=== PATIENT | male | born 1930 | race Caucasian/White ===

== ENCOUNTER 2017-11-01 07:34 | Emergency (ER) | payer MEDICARE, OTHER ==
[2017-11-01 08:05] VITALS: BP 139/96
--- NOTE | 2017-11-01 08:18 | EDM.PDOC ---
ED HPI GENERAL MEDICAL PROBLEM - General Chief Complaint: Lower Extremity Injury/Pain Stated Complaint: fall Time Seen by Provider: 11/01/17 08:00 - History of Present Illness INITIAL COMMENTS - FREE TEXT/NARRATIVE: Zara is an 87 year old male who presents to the ED via EMS from [facility]. He reportedly fell last evening around 2129. Nursing staff reports he hit his right side. They report that through the night he began complaining more of right hip pain and was unable to ambulate to ambulate this morning. They notified family, who then wanted him brought to the ED. He does have dementia and is very confused. Family reports this is his baseline, however they are worried that he did hit his head. He is on coumadin. He is unable to give review of systems, as he does not answer questions appropriately. He does have a laceration to his right elbow, which nursing staff at [facility] applied steri strips to. Family reports they are unaware if the patient has been coughing or had any recent illness. EMS reports his oxygen saturations were low 80's upon arrival. 2 L O2 was applied and O2 sats improved to low 90's. Grandson denies any issues with oxygen saturations in the past. He has been afebrile. Onset Date: 10/31/17 Onset Time: 21:30 Location: Reports: Lower Extremity, Right Worsens with: Reports: Movement Context: Reports: Activity Associated Symptoms: Reports: Confusion. Denies: Chest Pain, Cough, cough w sputum Treatments SOFTWARE SUPPORT ANALYST: Reports: See EMS Report Right Hip Pain Score (Numeric/FACES): 5 - Related Data Allergies Allergy/AdvReac Type Severity Reaction Status Date / Time No Known Allergies Allergy Verified 11/01/17 08:37 Home Meds: Home Meds Montelukast Sodium 10 mg PO BEDTIME 01/30/15 [History] Tamsulosin HCl 0.4 mg PO DAILY 01/30/15 [History] Benzonatate [Tessalon Perles] 100 mg PO TID PRN 08/09/16 [History] Pantoprazole Sodium 40 mg PO DAILY 08/09/16 [History] Warfarin [Coumadin] 5 mg PO DAILY #30 tablet 08/11/16 [Rx] Past Medical History HEENT History: Reports: Allergic Rhinitis, Glaucoma, Hard of Hearing Cardiovascular History: Reports: Blood Clots/VTE/DVT Respiratory History: Reports: Other (See Below) Other Respiratory History: chronic cough Gastrointestinal History: Reports: GERD Genitourinary History: Reports: BPH Musculoskeletal History: Reports: Arthritis Psychiatric History: Reports: Dementia Dermatologic History: Reports: Other (See Below) Other Dermatologic History: actinic keratosis - Past Surgical History GI Surgical History: Reports: Appendectomy, EGD Social & Family History - Family History Family Medical History: Unobtainable - Tobacco Use Smoking Status *Q: Never Smoker Second Hand Smoke Exposure: No - Caffeine Use Caffeine Use: Reports: Coffee - Alcohol Use Days Per Week of Alcohol Use: 0 - Recreational Drug Use Recreational Drug Use: No Review of Systems - Review of Systems Review Of Systems: Unable To Obtain Constitutional: Denies: Fever Respiratory: Denies: Cough, Sputum Cardiovascular: Denies: Chest Pain Genitourinary: Reports: No Symptoms Neurological: Reports: Confusion, Difficulty Walking, Other (dementia) ED EXAM, GENERAL - Physical Exam Exam: See Below Exam Limited By: Altered Mental Status General Appearance: Alert, WD/WN, No Apparent Distress Eye Exam: Bilateral Eye: Normal Fundi, Normal Inspection, PERRL Ears: Normal External Exam, Normal Canal, Hearing Grossly Normal, Normal TMs Nose: Normal Inspection, Normal Mucosa, No Blood Throat/Mouth: Normal Inspection, Normal Lips, Normal Teeth, Normal Gums, Normal Oropharynx, Normal Voice, No Airway Compromise Head: Atraumatic, Normocephalic Neck: Normal Inspection, Supple, Non-Tender, Full Range of Motion Respiratory/Chest: No Respiratory Distress, No Accessory Muscle Use, Chest Non- Tender, Decreased Breath Sounds, Crackles. No: Retractions GI/Abdominal: Normal Bowel Sounds, Soft, Non-Tender, No Organomegaly, No Distention, No Abnormal Bruit, No Mass Back Exam: Normal Inspection, Full Range of Motion. No: Vertebral Tenderness Extremities: Normal Capillary Refill, Pedal Edema (2+ pitting), Joint Swelling ( right hip), Leg Pain, Limited Range of Motion Neurological: Alert, CN II-XII Intact, Disoriented, Memory Loss Remote Events, Memory Loss Recent Events Psychiatric: Normal Affect, Normal Mood Skin Exam: Warm, Dry, Intact, Normal Color, No Rash, Other (laceration to right elbow, steri strips in place) Lymphatic: No Adenopathy Course - Vital Signs Last Recorded V/S: Last Vital Signs Temp 97 F 11/01/17 07:54 Pulse 83 11/01/17 08:05 Resp 20 11/01/17 08:05 BP 139/96 H 11/01/17 08:05 Pulse Ox 92 L 11/01/17 08:05 - Orders/Labs/Meds Orders: Active Orders 24 hr Category Date Time Status Chest 1V Frontal [CR] Stat Exams 11/01/17 08:01 Taken Elbow Min 3V Rt [CR] Stat Exams 11/01/17 08:02 Taken Head wo Cont [CT] Stat Exams 11/01/17 08:02 Taken Hip Min 2V or 3V w Pelvis Rt [CR] Stat Exams 11/01/17 08:03 Taken CULTURE BLOOD [BC] Stat Lab 11/01/17 10:53 Received CULTURE BLOOD [BC] Stat Lab 11/01/17 10:53 Received Blood Culture x2 Reflex Set [OM.PC] Stat Oth 11/01/17 10:21 Ordered Labs: Laboratory Tests 11/01/17 11/01/17 11/01/17 Range/Units 08:14 08:14 08:14 WBC 15.2 H (5.0-10.0) 10^3/uL RBC 4.57 (4.50-6.00) 10^6/uL Hgb 13.8 L (14.0-18.0) g/dL Hct 41.6 (40.0-54.0) % MCV 91.0 (82.0-94.0) fL MCH 30.2 (27.0-32.0) pg MCHC 33.2 (33.0-38.0) g/dL RDW Coeff of Jim 13.4 (11.0-15.0) % Plt Count 221 (150-400) 10^3/uL Neut % (Auto) 93.2 H (35-85) % Lymph % (Auto) 2.1 L (10-55) % [place] % (Auto) 4.5 (0-16) % Eos % (Auto) 0.1 (0-5) % Baso % (Auto) 0.1 (0-3) % Neut # (Auto) 14.20 H (1.80-7.00) 10^3/uL Lymph # (Auto) 0.32 L (1.00-4.80) 10^3/uL [place] # (Auto) 0.69 (0.00-0.80) 10^3/uL Eos # (Auto) 0.02 (0.00-0.45) 10^3/uL Baso # (Auto) 0.01 10^3/uL PT 23.1 H (9.7-12.3) SEC INR 2.09 H (0.92-1.18) D-Dimer, Quantitative > 10.0 H (0.00-0.50) Sodium 138 (136-145) mEq/L Potassium 4.0 (3.5-5.0) mEq/L Chloride 105 (98-106) mEq/L Carbon Dioxide 24 (21-32) mmol/L BUN 23 H (7-18) mg/dL Creatinine 1.6 H (0.7-1.3) mg/dL Est Cr Clr Drug Dosing 35.03 mL/min Estimated GFR (MDRD) 41 L (>=60) mL/min Glucose 149 H D (75-99) mg/dL Lactic Acid (0.4-2.0) mmol/L Calcium 8.9 (8.4-10.1) mg/dL Total Bilirubin 2.0 H (0.0-1.0) mg/dL AST 23 (15-37) U/L ALT 24 (12-78) U/L Alkaline Phosphatase 74 (46-116) U/L Troponin I 0.087 H (0.00-0.06) ng/mL C-Reactive Protein 2.1 H (0.2-0.8) mg/dL NT-Pro-B Natriuret Pep 899 (0-1000) pg/mL Total Protein 6.7 (6.4-8.2) g/dL Albumin 3.4 (3.4-5.0) g/dL Urine Color (YELLOW) Urine Appearance (CLEAR) Urine pH (4.5-8.0) Ur Specific [place] (1.003-1.020) Urine Protein (NEGATIVE) mg/dL Urine Glucose (UA) (NEGATIVE) mg/dL Urine Ketones (NEGATIVE) mg/dL Urine Occult Blood (NEGATIVE) Urine Nitrite (NEGATIVE) Urine Bilirubin (NEGATIVE) Urine Urobilinogen (0.2-1.0) EU/dL Ur Leukocyte Esterase (NEGATIVE) Urine RBC (0-5) /HPF Urine WBC (0-5) /HPF Ur Epithelial Cells (NOT SEEN) /HPF 11/01/17 11/01/17 Range/Units 09:25 10:21 WBC (5.0-10.0) 10^3/uL RBC (4.50-6.00) 10^6/uL Hgb (14.0-18.0) g/dL Hct (40.0-54.0) % MCV (82.0-94.0) fL MCH (27.0-32.0) pg MCHC (33.0-38.0) g/dL RDW Coeff of Jim (11.0-15.0) % Plt Count (150-400) 10^3/uL Neut % (Auto) (35-85) % Lymph % (Auto) (10-55) % [place] % (Auto) (0-16) % Eos % (Auto) (0-5) % Baso % (Auto) (0-3) % Neut # (Auto) (1.80-7.00) 10^3/uL Lymph # (Auto) (1.00-4.80) 10^3/uL [place] # (Auto) (0.00-0.80) 10^3/uL Eos # (Auto) (0.00-0.45) 10^3/uL Baso # (Auto) 10^3/uL PT (9.7-12.3) SEC INR (0.92-1.18) D-Dimer, Quantitative (0.00-0.50) Sodium (136-145) mEq/L Potassium (3.5-5.0) mEq/L Chloride (98-106) mEq/L Carbon Dioxide (21-32) mmol/L BUN (7-18) mg/dL Creatinine (0.7-1.3) mg/dL Est Cr Clr Drug Dosing mL/min Estimated GFR (MDRD) (>=60) mL/min Glucose (75-99) mg/dL Lactic Acid 1.3 (0.4-2.0) mmol/L Calcium (8.4-10.1) mg/dL Total Bilirubin (0.0-1.0) mg/dL AST (15-37) U/L ALT (12-78) U/L Alkaline Phosphatase (46-116) U/L Troponin I (0.00-0.06) ng/mL C-Reactive Protein (0.2-0.8) mg/dL NT-Pro-B Natriuret Pep (0-1000) pg/mL Total Protein (6.4-8.2) g/dL Albumin (3.4-5.0) g/dL Urine Color Yellow (YELLOW) Urine Appearance Clear (CLEAR) Urine pH 6.5 (4.5-8.0) Ur Specific [place] 1.020 (1.003-1.020) Urine Protein 30 H (NEGATIVE) mg/dL Urine Glucose (UA) Negative (NEGATIVE) mg/dL Urine Ketones 40 H (NEGATIVE) mg/dL Urine Occult Blood Large H (NEGATIVE) Urine Nitrite Negative (NEGATIVE) Urine Bilirubin Negative (NEGATIVE) Urine Urobilinogen 0.2 (0.2-1.0) EU/dL Ur Leukocyte Esterase Trace H (NEGATIVE) Urine RBC 40-50 H (0-5) /HPF Urine WBC 5-10 H (0-5) /HPF Ur Epithelial Cells Few H (NOT SEEN) /HPF Meds: Medications Discontinued Medications Generic Name Dose Route Start Last Admin Trade Name Freq PRN Reason Stop Dose Admin Ceftriaxone Sodium 1 gm 11/01/17 10:15 11/01/17 11:15 Rocephin IVPUSH 1 gm Q24H YOANNA Administration Fentanyl 25 mcg 11/01/17 10:17 11/01/17 11:08 Sublimaze IVPUSH 11/01/17 10:18 25 mcg ONETIME ONE Administration Azithromycin 500 mg/ Sodium 250 mls @ 250 mls/hr 11/01/17 10:15 11/01/17 11: 17 Chloride IV 250 mls/hr Q24H YOANNA Administration Sodium Chloride 500 mls @ 250 mls/hr 11/01/17 10:15 11/01/17 10:21 Normal Saline IV 250 mls/hr .BOLUS YOANNA Administration - Re-Assessments/Exams Free Text/Narrative Re-Assessment/Exam: Discussed labs, EKG, and xray results with patient and family. Hip xray shows right displaced femoral neck fracture. CXR shows bilateral pneumonia. No EKG changes from comparison. WBC elevated. D-dimer elevated, suspected from pneumonia. Unable to do chest CTA due to creat of 1.6. Troponin also elevated, suspected from pneumonia. INR 2.09. Lactic acid 1.3. Influenza negative. Dr. Vazquez (orthopedics) at reviewed hip xray. Reports that he will likely need surgery if that is the route family is wishing to pursue. Family reports patient is very active and ambulatory at baseline. They would like surgery. Given pneumonia and other abnormal labs, case discussed with Dr. Jha ( hospitalist) at . She accepted patient for transfer to . Blood cultures were drawn prior to antibiotic administration. Family update on transfer. Risks and benefits of transfer discussed with grandson. Risks of transfer include vehicle crash enroute, worsening of condition enroute, or . Benefits of transfer include higher level of care and specialized care. Risks of nontransfer include worsening of condition, , and nonspecialized care. Benefits of nontransfer include care close to home and familiar environment. Family agrees to transfer after discussion of risks and benefits. Patient will be transferred to , with accepting physician Dr. Jha. Departure - Departure Time of Disposition: 10:40 Disposition: DC/Tfer to [facility] Condition: Fair Clinical Impression: Fracture of neck of femur, hip, Chronic kidney disease Bilateral pneumonia Qualifiers: Pneumonia type: due to unspecified organism Lung location: lower lobe of lung Qualified Code(s): J18.9 - Pneumonia, unspecified organism UTI (urinary tract infection) Qualifiers: Urinary tract infection type: site unspecified Hematuria presence: without hematuria Qualified Code(s): N39.0 - Urinary tract infection, site not specified - Discharge Information Referrals: Maksim Taylor MD [Primary Care Provider] - Forms: ED Department Discharge Additional Instructions: Antibiotics and IVF initiated prior to transfer Transfer to via BLS Accepting physician Dr. Jha (hospitalist) - Problem List & Annotations (1) Bilateral pneumonia SNOMED Code(s): 167814688 Code(s): J18.9 - PNEUMONIA, UNSPECIFIED ORGANISM Status: Acute Qualifiers: Pneumonia type: due to unspecified organism Lung location: lower lobe of lung Qualified Code(s): J18.9 - Pneumonia, unspecified organism (2) Fracture of neck of femur, hip SNOMED Code(s): 2419518 Code(s): S72.009A - FRACTURE OF UNSP PART OF NECK OF UNSP FEMUR, INIT Status: Acute (3) UTI (urinary tract infection) SNOMED Code(s): 17291511 Code(s): N39.0 - URINARY TRACT INFECTION, SITE NOT SPECIFIED Status: Acute Qualifiers: Urinary tract infection type: site unspecified Hematuria presence: without hematuria Qualified Code(s): N39.0 - Urinary tract infection, site not specified (4) Chronic kidney disease SNOMED Code(s): 807869835 Code(s): N18.9 - CHRONIC KIDNEY DISEASE, UNSPECIFIED Status: Chronic - Problem List Review Problem List Initiated/Reviewed/Updated: Yes - My Orders Last 24 Hours: My Active Orders 11/01/17 08:01 Chest 1V Frontal [CR] Stat 11/01/17 08:02 Elbow Min 3V Rt [CR] Stat Head wo Cont [CT] Stat 11/01/17 08:03 Hip Min 2V or 3V w Pelvis Rt [CR] Stat 11/01/17 10:21 Blood Culture x2 Reflex Set [OM.PC] Stat 11/01/17 10:53 CULTURE BLOOD [BC] Stat CULTURE BLOOD [BC] Stat - Assessment/Plan Last 24 Hours: My Active Orders 11/01/17 08:01 Chest 1V Frontal [CR] Stat 11/01/17 08:02 Elbow Min 3V Rt [CR] Stat Head wo Cont [CT] Stat 11/01/17 08:03 Hip Min 2V or 3V w Pelvis Rt [CR] Stat 11/01/17 10:21 Blood Culture x2 Reflex Set [OM.PC] Stat 11/01/17 10:53 CULTURE BLOOD [BC] Stat CULTURE BLOOD [BC] Stat Plan: Transfer to via [facility] Antibiotics initiated prior to transfer Pain medications given prior to transfer. Patient appears comfortable.
[2017-11-01] MEDS ORDERED: cefTRIAXone 1 GM Vial IVPUSH SCH (10:15)
[2017-11-01] MEDS ORDERED: Azithromycin 500 MG in Sodium Chloride 0.9% 250 ML IV SCH (10:15)
[2017-11-01] MEDS ORDERED: Sodium Chloride 0.9% 500 ML IV SCH (10:15)
[2017-11-01] MEDS ORDERED: fentaNYL 100 MCG/2 ML SDV IVPUSH ONE (10:17)
== END 2017-11-01 12:15 ==
LOC: CC.ED 07:34
DX: S72.001A Fracture of unspecified part of neck of right femur, initial encounter for closed fracture (principal); J18.9 Pneumonia, unspecified organism; N39.0 Urinary tract infection, site not specified; N18.9 Chronic kidney disease, unspecified; Z79.899 Other long term (current) drug therapy; Z79.01 Long term (current) use of anticoagulants; W19.XXXA Unspecified fall, initial encounter
CPT/HCPCS: 36415; 51702; 70450; 71045; 73080; 73502; 80053; 81001; 83605; 83880; 84484; 85025; 85379; 85610; 86140; 87040; 87804; 93005; 93010; 96361; 96365; 96375; 99285; J0456; J0696; J3010; J7040; J7050